=== PATIENT | female | born 1990 | race Caucasian/White ===

== ENCOUNTER 2018-08-04 04:40 | Observation (INO) | payer OTHER ==
[~2018-08-04] VITALS: Ht 175.3 cm; Wt 68.0 kg
[2018-08-04] VITALS (7 sets, daily range): BP systolic 92–116; BP diastolic 44–69
--- NOTE | ~2018-08-04 | OP ---
[address] [address] OPERATIVE REPORT Name: SARABJITMARY M Room: [address] M.R.#: [id number] Admission: 08/04/18 Attend Phys: Kelly Hubbard DO Discharge: Date of : 89 Report #: [id number] THIS REPORT FOR: //name// CC: Kelly Hubbard [facility] physician/PCP PREOPERATIVE DIAGNOSIS: Acute appendicitis. POSTOPERATIVE DIAGNOSIS: Acute appendicitis. PROCEDURE: Laparoscopic appendectomy. SURGEON: Kelly Hubbard DO ASSISTANTS: Brando Ham, PGY-3 and MS Holland3. ESTIMATED BLOOD LOSS: 5. COMPLICATIONS: None. DRAINS: None. SPECIMEN: Appendix. INDICATIONS: The patient is a 28-year-old female that presented to the Emergency Department with complaints of right lower quadrant pain. On CT, she was found to have an inflamed appendix consistent with acute appendicitis and a discussion was held regarding the treatment of appendicitis including the risks and benefits of laparoscopic appendectomy. She understood and decided to proceed with surgery. Of note, she is a mother of 5 months and actively . TECHNIQUE: After informed consent was obtained, the patient was brought to the operating room and placed in the supine position. SCDs were applied. Preoperative antibiotics were given. General anesthesia was administered with an endotracheal tube. The patient was prepped and draped in the usual sterile fashion. Surgical pause was held to confirm proper patient and procedure. The infraumbilical skin was anesthetized with 0.5% Marcaine and this was then elevated with 2 Adson's and incised with a #11 blade. Dissection was carried down to the fascia using blunt dissection. The fascia was elevated with 2 Keira clamps and incised with cautery. Two stay sutures were placed on either side of the fascia after being elevated with Kochers. The Shelly port was introduced after blunt peritoneal entry and secured with the stay sutures. Abdomen was insufflated. Camera was introduced into the abdomen. A brief exploration was undertaken. No abnormalities were readily apparent. An additional 5 mm port in the suprapubic and in the left lower quadrant were introduced under direct visualization after local anesthesia. [place] [address] OPERATIVE REPORT Name: SARABJITMARY M Room: [address] IN [facility].#: [id number] Admission: 08/04/18 Attend Phys: Kelly Hubbard DO Discharge: Date of : 89 Report #: [id number] noted to be within the pelvis. It was grasped with laparoscopic Babcocks and elevated. There was a mild amount of fibrinous exudate over the appendix. It was lightly adherent to the terminal ileum. This was using gentle blunt dissection. A [place] dissector was used to create a window at the base of the appendix. A purple load 45 mm Covidien stapler was then used to fire across the base of the appendix. An additional white load was fired across the mesoappendix. A small remnant of mesoappendix was left behind after the staple line, which was taken down with hook cautery. An EndoCatch bag was introduced through the umbilical port and the appendix placed within the abdomen was desufflated and the staple line was inspected for hemostasis. There was a small area of bleeding at the appendiceal staple line, which was lightly cauterized. This was rechecked and noted to be hemostatic. The abdomen was then desufflated. All trocars were removed under direct visualization. The previous stay sutures were elevated and replaced with Kochers. A single xsusto-qo-xanej using 0 Vicryl was placed to close the fascia. All wounds were anesthetized again with 0.5% Marcaine. They were closed with 4-0 Monocryl. Wounds were cleansed and dressed with Mastisol, Steri-Strips, 4 x 4's, and Tegaderms. The patient tolerated the procedure well without complication. All counts were correct at the close of the case. By: [id number] Ham DO /maria l
[2018-08-04] MEDS ORDERED: VITAFOL-OB+DHA1 EACH PO (04:53)
[2018-08-04 04:56] LABS: URINE BILIRUBIN NEGATIVE (Negative); URINE BLOOD TRACE (Negative); URINE CLARITY CLEAR; URINE COLOR YELLOW; URINE GLUCOSE-RANDOM NEGATIVE (Negative); URINE KETONES 2+ (Negative); URINE LEUKOCYTES-REFLEX NEGATIVE (Negative); URINE NITRITE-REFLEX NEGATIVE (Negative); URINE PROTEIN NEGATIVE (Negative); URINE SPECIFIC GRAVITY >= 1.030 (1.005-1.030); URINE UROBILINOGEN 0.2 E.U./dl (0.2-1.0)
[2018-08-04 05:20] LABS: HEMATOCRIT 39.5 % (37.0-47.0); HEMOGLOBIN 13.3 gm/dL (12.0-15.0); MCH 28.6 pg (26.0-34.0); MCHC 33.5 g/dL (28.0-37.0); MCV 85.2 fL (80.0-100.0); MPV 6.3 fl. (7.2-11.1); NUCLEATED RBCS 0 /100WBC; PLATELET COUNT* 289 thou/uL (150-400); RBC 4.64 mil/uL (4.20-5.00); RDW-CV 12.1 % (10.5-14.5); WBC 16.6 thou/uL (4.0-11.0)
[2018-08-04 05:37] LABS: CALCIUM 9.1 mg/dL (8.5-10.1); POTASSIUM 3.6 mmol/L (3.5-5.1)
[2018-08-04 05:42] LABS: ALBUMIN 4.1 g/dL (3.4-5.0); TOTAL BILIRUBIN 0.7 mg/dL (<0.1-1.0); TOTAL PROTEIN 7.9 g/dL (6.4-8.2)
[2018-08-04 05:51] LABS: ABSOLUTE MONOCYTES 0.5 thou/uL (0.0-1.2); ABSOLUTE NEUTROPHILS 14.1 thou/uL (1.6-8.1); ANISOCYTOSIS 1+; PLATELET ESTIMATE ADEQUATE; POIKILOCYTOSIS 1+
--- NOTE | 2018-08-04 06:01 | NUR ---
OFFERED PT PAIN MEDICATION, PT STATES SHE WOULD NOT BE ABLE TO TAKE IT DUE TO BREAST FEEDING
--- NOTE | 2018-08-04 17:50 | NUR ---
PT VSS THIS SHIFT. PT HAD APPY THIS SHIFT, PT TOLERATING DIET AND PAIN MEDICATIONS AT THIS TIME. DR PEREZ GAVE TELEPHONE ORDER TO DC TORADOL DUE TO NOT BEING COMPATABLIE WITH AND INCREASED NORCO TO 1-2 TABS Q6, ORDERS CHANGED, NO NEW RX WRITTEN. GIVEN RX TO FILL MEDS AT PHARMACY. 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 PT PROVIDED WITH ANOTHER DOSE OF PAIN MEDICATION WILL WAIT 30 MINUTES TO SEE IF IT HELPS WITH HER PAIN. DRESSINGS ARE CDI AT THIS TIME. PT EDUCATED TO TAKE STOOL SOFTENER WHILE ON PAIN MEDICATIONS. PT AND VERBALIZED UNDERSTANDING TO DC INSTRUCTIONS. PT EDUCATED TO FOLLOW UP WITH PCP IN 1-2 WEEKS IF NECESSARY AND PROVIDED WITH DC NOTE FROM DR COKER THAT HAS PHYSICIAN PHONE NUMBER.
[2018-08-04] MEDS ORDERED: NORCO 5-325 TA1 EACH PO (17:56)
--- NOTE | 2018-08-04 19:39 | NUR ---
PT AND VERBALIZED UNDERSTANDING TO DC INSTRUCTIONS. PT UNDERSTANDS SHE CAN TAKE OVER THE COUNTER IBUPROFEN WITH NORCO AND ALTERNATE THE TWO. PT UNDERSTANDS SHE CAN USE ICE FOR PAIN RELIEF AND KNOWS SHE NEEDS TO PUMP AND DUMP THE FIRST TIME AFTER SURGERY, PT GOT PT PUMP TO DUMP BREASTMILK. PT IV REMOVED INTACT AND WILL BE TAKEN OUT VIA WHEELCHAIR WITH HOSPITAL STAFF.
--- NOTE | 2018-08-08 10:09 | PATH ---
[address] [address] PATHOLOGY RPT PROCEDURE Name: MARY WHIPPLE Room: [address] Brian Brown#: [id number] Admission: 08/04/18 Date of : 89 Discharge: 08/04/18 Report #: [id number] Path Case #: [id number] [facility] Accession Number: [id number] . 01 Material submitted: . APPENDIX . 01 Clinical history: . Acute appendicitis. . 02 Diagnosis: Appendix, appendectomy: - Acute appendicitis. . (MAP:vjm;08/07/2018) AGA/08/07/2018 . 02 Electronically signed: . Ron Wilson MD, Pathologist NPI- [id number] . 01 Gross description: . Received in formalin labeled "Mary Whipple, appendix" is a vermiform appendix measuring 8.2 cm in length and 1.0 cm in diameter. The proximal margin is closed with a staple line. There is an attached portion of mesoappendix measuring 5.7 x 2.5 x 1.2 cm. The serosa is pink-red and hemorrhagic with extensive ferreira-white purulent exudate. The specimen is serially sectioned to reveal no perforations or fecaliths and a luminal diameter of 0.3-0.5 cm. Tare Worker sections are submitted in cassette A1, with the proximal margin inked black. ([facility] [place]; 08/06/2018) SYC/SYC . 02 Pathologist provided ICD-10: K35.80 . 02 CPT . 309799 Specimen Comment: A courtesy copy of this report has been sent to Specimen Comment: [phone]. Specimen Comment: Report sent to Performed at: [address], [place] [id number] MD Chip Lee MD Phone: [phone] Performed at: [address] [address] [place] [id number] MD Onur Frances MD Phone: [phone]
== END 2018-08-04 19:30 | disposition home or self-care (01) ==
LOC: M.ERS 04:40 → M.ORTHSURG 06:44 → M.TBA-ER 06:44 → M.ORTHSURG 08:13
PROVIDERS: Emergency Medicine; ADMIT Surgery
DX: K35.80 Unspecified acute appendicitis (principal); Z90.49 Acquired absence of other specified parts of digestive tract; Z98.890 Other specified postprocedural states; Z87.440 Personal history of urinary (tract) infections; M54.9 Dorsalgia, unspecified